=== PATIENT | female | born 1970 | race Two or more races ===

== ENCOUNTER 2018-03-12 14:56 | Outpatient (CLI) | payer OTHER | END 2018-03-12 15:14 | disposition home or self-care (01) | LOC: RAD 501 14:56 | DX: R05 Cough (principal) ==

== ENCOUNTER → 2018-11-17 | Outpatient (CLI) | payer OTHER | END | disposition home or self-care (01) | LOC: RAD 15:22 | DX: Z13.89 Encounter for screening for other disorder (principal) ==